=== PATIENT | male | born 1930 | race Caucasian/White ===

== ENCOUNTER → 2016-08-13 | Outpatient (CLI) | payer MEDICARE, OTHER | END | disposition home or self-care (01) | LOC: GMAJ 15:13 | PROVIDERS: ATTEND Family Medicine | DX: N40.1 Benign prostatic hyperplasia with lower urinary tract symptoms (principal); F32.9 Major depressive disorder, single episode, unspecified ==

== ENCOUNTER → 2017-10-28 | Outpatient (CLI) | payer MEDICARE, OTHER | LOC: GMAJ 11:11 | PROVIDERS: ATTEND Family Medicine | DX: Z12.5 Encounter for screening for malignant neoplasm of prostate (principal) ==

== ENCOUNTER → 2018-10-27 | Outpatient (CLI) | payer MEDICARE, OTHER | LOC: GMAJ 10:43 | PROVIDERS: ATTEND Family Medicine | DX: Z12.5 Encounter for screening for malignant neoplasm of prostate (principal) ==

== ENCOUNTER 2019-02-21 13:22 | Emergency (ER) | payer MEDICARE, OTHER ==
[2019-02-21] MEDS ORDERED: SODIUM CHLORIDE 0.9% (FLUSH) 10 ML SYG IV PRN (13:38)
[2019-02-21] MEDS ORDERED: SODIUM CHLORIDE 0.9% 1000ML 1,000 ML IVS PRN (13:38)
[2019-02-21] MEDS ORDERED: fentaNYL CITRATE INJ 50 MCG/ML AMP IV ONE (13:40)
--- NOTE | 2019-02-21 13:42 | ED.PDOC ---
History of Present Illness - General Time Seen by Provider: 02/21/19 13:38 - History of Present Illness Initial Comments: 88-year-old male arrives via EMS after fall from standing onto right hip, with immediate onset of pain, deformity, inability to ambulate. He denies abdominal pain chest pain or hitting his head. unclear if he takes blood thinners, but says he has hx of irregular heart beat. Allergies/Adverse Reactions: Allergies Codeine Allergy (Verified 07/04/14 18:07) Penicillins Allergy (Verified 07/04/14 18:07) Home Medications: Ambulatory Orders Tramadol HCl [Ultram] 50 mg PO Q6HR PRN #30 tab 06/22/15 Warfarin Sodium [Coumadin] 7.5 mg PO DAILY 06/22/15 Review of Systems - Review of Systems Review of Systems: 02/21/19 13:41 General: Denies generalized weakness, fever, arthralgia/myalgia HEENT: Denies sore throat, rhinorrhea Cardiovascular: Denies chest pain, palpitations Respiratory: Denies SOB, cough Gastrointestinal: Denies abdominal pain, vomiting, diarrhea : Denies dysuria, frequency Musculoskeletal: has extremity pain, extremity swelling as in HPI Integument: Denies rash, itching Neuro: Denies focal weakness or numbness Psych: Denies depression, hallucinations. Past Medical History (General) - Patient Medical History Hx Cardiac Disorders: Yes - A-Fib Hx Hypertension: Yes - Vaccination History Hx Tetanus, Diphtheria Vaccination: Yes Hx Influenza Vaccination: Yes Hx Pneumococcal Vaccination: Yes - Social History Hx Tobacco Use: No Hx Alcohol Use: No - Female History Patient : No Family Medical History - Family History Mother Family History: Unknown Living Status: Physical Exam - Physical Exam Comments: General Appearance: Patient is awake and alert. Skin: Warm and dry. No diaphoresis. No rash or other lesions. Head: Normocephalic/atraumatic. Eyes: PERRL, lids, conjunctiva and sclera unremarkable. EOMI intact. ENT: No nasal discharge. Oropharynx. Without erythema, exudate, lesions. Moist mucous membranes. Neck: Supple. No LAD. No tenderness. No JVD noted. Respiratory: Normal rate and effort. Breath sounds clear bilaterally. Cardiovascular: Regular rate. Heart sounds normal. No murmur. GI: Abdomen soft, non-distended and non-tender. No rebound/guarding. Bowel sounds normal. Back: No tenderness Musculoskeletal: Extremities- has shortened, int rotated R hip, w/ deformity at prox femur, thigh is swollen. NV intract distal to the injury. o/w Normal range of motion. No effusion, cyanosis, edema. Neurological: Alert. No facial palsy. Speech clear. Gag intact. No motor deficit, str symmetric. No sensory deficit. Progress - Progress Progress: 02/21/19 14:35 R hip x-ray reviewed, angulated, spiral fx of prox shaft, reduced w traction, external rotation, signif improved alignment on repeat xray. comfort improved, remains w/ good pulse, NV intact. - Results/Orders Results/Orders: Vital Signs - 24 hr 02/21/19 02/21/19 13:46 13:57 Temperature 97.3 F L Pulse Rate [ 58 L Right Brachial] Respiratory 20 Rate Blood Pressure 160/85 [Right Arm] O2 Sat by Pulse 98 95 Oximetry 02/21/19 13:38 IV Care:Saline Lock per Protoc QSHIFT Telemetry .ONCE Sodium Chloride 0.9% (Flush) [Saline Flush Syringe] 10 ml IV PRN PRN Sodium Chloride 0.9% 1000ML [Ns 1000 ml] 1,000 ml IVS .QD EKG Stat 02/21/19 13:39 EKG Assessment ONCE Hip,Right 2 Views [RAD] Stat Pelvis [RAD] Stat 02/21/19 14:33 URINALYSIS Stat 02/22/19 09:00 Pulse Ox Daily Laboratory Results WBC 7.3 K/mm3 (4.8-10.8) 02/21/19 13:59 RBC 4.26 M/mm3 (4.70-6.10) L 02/21/19 13:59 Hgb 14.4 gm/dL (14.0-18.0) 02/21/19 13:59 Hct 43.2 % (42.0-52.0) 02/21/19 13:59 MCV 101.3 fl (80.0-94.0) H 02/21/19 13:59 MCH 33.7 pg (27.0-31.0) H 02/21/19 13:59 MCHC 33.3 g/dL (33.0-37.0) 02/21/19 13:59 RDW 14.8 % (11.5-14.5) H 02/21/19 13:59 Plt Count 175 K/mm3 (130-400) 02/21/19 13:59 MPV 9.0 fl (7.40-10.4) 02/21/19 13:59 Absolute Neuts (auto) 3.70 K/uL (1.8-6.8) 02/21/19 13:59 Absolute Lymphs (auto) 3.00 K/uL (1.0-3.4) 02/21/19 13:59 Absolute Monos (auto) 0.50 K/uL (0.2-0.8) 02/21/19 13:59 Absolute Eos (auto) 0.10 K/uL (0.0-0.4) 02/21/19 13:59 Absolute Basos (auto) 0.10 K/uL (0.0-0.1) 02/21/19 13:59 Neutrophils % 50.3 % (42.0-78.0) 02/21/19 13:59 Lymphocytes % 41.3 % (20.0-50.0) 02/21/19 13:59 Monocytes % 6.3 % (2.0-9.0) 02/21/19 13:59 Eosinophils % 0.9 % (1.0-5.0) L 02/21/19 13:59 Basophils % 1.2 % (0.0-2.0) 02/21/19 13:59 PT 27.1 SECONDS (9.0-10.9) H* 02/21/19 13:59 INR 2.74 (0.9-1.15) H 02/21/19 13:59 PTT (SP) 32.3 SECONDS (21.8-31.6) H 02/21/19 13:59 Sodium 138 mmol/L (135-145) 02/21/19 13:59 Potassium 3.6 mmol/L (3.6-5.0) 02/21/19 13:59 Chloride 105 mmol/L (101-111) 02/21/19 13:59 Carbon Dioxide 24 mmol/L (21-31) 02/21/19 13:59 Anion Gap 12.6 (12-18) 02/21/19 13:59 BUN 15 mg/dL (7-18) 02/21/19 13:59 Creatinine 0.75 mg/dL (0.6-1.3) 02/21/19 13:59 BUN/Creatinine Ratio 20.0 (10-20) 02/21/19 13:59 Random Glucose 110 mg/dL (70-105) H 02/21/19 13:59 Serum Osmolality 277.1 mOsm/L (275-295) 02/21/19 13:59 Calcium 9.2 mg/dL (8.4-10.2) 02/21/19 13:59 Total Bilirubin 1.1 mg/dL (0.2-1.0) H 02/21/19 13:59 AST 25 IU/L (10-42) 02/21/19 13:59 ALT 18 IU/L (10-60) 02/21/19 13:59 Alkaline Phosphatase 70 IU/L (42-121) 02/21/19 13:59 Serum Total Protein 6.9 gm/dL (6.4-8.2) 02/21/19 13:59 Albumin 3.6 g/dl (3.2-5.5) 02/21/19 13:59 Globulin 3.3 gm/dL (2.3-3.5) 02/21/19 13:59 Albumin/Globulin Ratio 1.1 (1.1-1.9) 02/21/19 13:59 d/w Ortho, accepting EM MD in [place], have accepted for transfer. labs have return w/ INR 2.7, family has arrived, confirms coumadin. hematoma not expanding, will call back to [place], d/w accepting MD. RN called transfer center, they will relay information to accepting MD. abd remains benign, alert w/out MORALES, will defer CT imaging, coagulopathy reversal to accepting center. Procedures - Additional Procedures Progress: FRACTURE REDUCTION: verbal consent obtained Indication: R Femur Fracture w/ signif angulation Reduced w/ traction, ext rotation, improved alignment, comfort. remains NV intact distally, jair well. Departure - Departure Clinical Impression: Femur fracture, right, Fall from standing, Anticoagulated on Coumadin Time of Disposition: 14:45 Disposition: Transfer to Hospital Condition: Serious Referrals: Ty Adams MD [Primary Care Provider] - 1-2 Weeks Home Medications: Ambulatory Orders Tramadol HCl [Ultram] 50 mg PO Q6HR PRN #30 tab 06/22/15 Warfarin Sodium [Coumadin] 7.5 mg PO DAILY 06/22/15 Transfer to Outside Facility - Transfer Information Decision to Transfer Date: 02/21/19 Decision to Transfer Time: 14:15 Reason for Transfer: required specialist not available Accepting Provider:: Marjorie Accepting Facility: [facility]
--- NOTE | 2019-02-21 14:42 | RAD ---
EXAM DESCRIPTION: XR Pelvis CLINICAL HISTORY: fall, trauma TECHNIQUE: One view of the pelvis is submitted COMPARISON: None available for comparison FINDINGS: Bones: Mildly comminuted, displaced and angulated right femoral fracture involving the lesser trochanter and subtrochanteric/proximal diaphyseal region. Joints: No dislocation. Mild degenerative changes bilaterally. Soft tissues: Unremarkable IMPRESSION: Right femoral lesser trochanter and subtrochanteric/proximal diaphyseal fracture. Electronically signed by: Veena Hernandez MD 02/21/2019 2:41 PM [facility]
[2019-02-21 15:32] VITALS: BP 147/75; TEMP 97.8; O2SAT 97
--- NOTE | 2019-02-21 16:33 | RAD ---
EXAM DESCRIPTION: Hip,Right 2 Views CLINICAL HISTORY: 88 years Male fall, deformity COMPARISON: AP pelvis study from earlier in the day. TECHNIQUE: Single views of the right hip. FINDINGS: There is an obliquely oriented fracture through the proximal shaft of the femur with medial and superior displacement of the distal femur with respect to the more proximal femur. The angulation of the distal fracture fragments visualized on the previous study appears improved. IMPRESSION: Fractures through the proximal shaft of the femur. Electronically signed by: Julio Luke MD 02/21/2019 4:[address] [facility]
== END 2019-02-21 15:25 | disposition short-term general hospital (02) ==
LOC: ER 13:22
DX: S72.341A Displaced spiral fracture of shaft of right femur, initial encounter for closed fracture (principal); I48.91 Unspecified atrial fibrillation; I10 Essential (primary) hypertension; Z79.01 Long term (current) use of anticoagulants; W18.30XA Fall on same level, unspecified, initial encounter; Y92.008 Other place in unspecified non-institutional (private) residence as the place of occurrence of the external cause
CPT/HCPCS: 36415; 72170; 73502; 80053; 81001; 85025; 85610; 85730; 93005; 94760; 96374; 99285; J3010; J7030

== ENCOUNTER 2019-02-28 14:32 | Emergency (ER) | payer MEDICARE, OTHER ==
--- NOTE | 2019-02-28 15:17 | ED.PDOC ---
History of Present Illness - General Chief Complaint: Skin/Abrasion/Tear Stated Complaint: Wound check s/p R hip rpr Time Seen by Provider: 02/28/19 15:05 - History of Present Illness Initial Comments: Pt [facility] the [facility] to get evaluation for the infected wound , pt had femur fracture surgery on 02/24/2019 and was tranferred to [facility] for [facility] , pt denies for any unusual pain , or swelling or fever or chills , however there is some discharge Timing/Duration: 24 hours Severity: mild Improving Factors: nothing Worsening Factors: nothing Associated Symptoms: denies symptoms Allergies/Adverse Reactions: Allergies Codeine Allergy (Verified 02/28/19 14:47) Penicillins Allergy (Verified 02/28/19 14:47) Home Medications: Ambulatory Orders Tramadol HCl [Ultram] 50 mg PO Q6HR PRN #30 tab 06/22/15 Warfarin Sodium [Coumadin] 7.5 mg PO DAILY 06/22/15 Metoprolol Tartrate 25 mg PO BID #20 tab 02/28/19 Review of Systems - Review of Systems Constitutional: States: no symptoms reported EENTM: States: no symptoms reported Respiratory: States: no symptoms reported Cardiology: States: no symptoms reported Gastrointestinal/Abdominal: States: no symptoms reported Genitourinary: States: no symptoms reported Musculoskeletal: States: no symptoms reported Skin: States: see HPI Neurological: States: no symptoms reported Endocrine: States: no symptoms reported Hematologic/Lymphatic: States: no symptoms reported Past Medical History (General) - Patient Medical History Hx Stroke: No Hx Cardiac Disorders: Yes - Hyperlipidemia; a fib; aortic aneurysm Hx Congestive Heart Failure: No Hx Hypertension: Yes Hx Diabetes: No Hx MRSA: No Surgical History: other - Vaccination History Hx Tetanus, Diphtheria Vaccination: Yes Hx Influenza Vaccination: - Unknown Hx Pneumococcal Vaccination: - Unknown - Social History Hx Tobacco Use: No Hx Alcohol Use: No - Female History Patient : No Family Medical History - Family History Mother Family History: Unknown Living Status: Physical Exam - Physical Exam General Appearance: Alert, Comfortable, Other - pale Eye Exam: bilateral normal Ears, Nose, Throat: hearing grossly normal, normal ENT inspection Neck: non-tender, full range of motion, supple, normal inspection Respiratory: lungs clear, normal breath sounds, no respiratory distress, no accessory muscle use Cardiovascular/Chest: regular rate, rhythm, no edema, no gallop Gastrointestinal/Abdominal: non tender, soft, no organomegaly Extremity: non-tender, normal inspection Neurologic: no motor/sensory deficits, alert, normal mood/affect, oriented x 3 Skin Exam: other - wound clean Lymphatic: no adenopathy Progress - Progress Progress: 02/28/19 18:23 Case d/w Hospitalist Murray simmons , he says that as the pt was operated at [facility] so he should be transferred there , d/w Dr christiano lee operations officer afloat about transfer he says that as the pt has asymptomatic anemia so no need of transfusion at this moment pt can go to the [facility] and cbc can be done over there if Hb is getting lower then he needs the transfer . As the wound looks clinically non infected with no fever, no pain , no erythema and normal WBC count so will also observe at the [facility] , if looks infected then he needs to be transferred - Results/Orders Results/Orders: Laboratory Results WBC 10.8 K/mm3 (4.8-10.8) 02/28/19 15:39 RBC 2.38 M/mm3 (4.70-6.10) L 02/28/19 15:39 Hgb 7.7 gm/dL (14.0-18.0) L* 02/28/19 15:39 Hct 23.2 % (42.0-52.0) L 02/28/19 15:39 MCV 97.3 fl (80.0-94.0) H 02/28/19 15:39 MCH 32.3 pg (27.0-31.0) H 02/28/19 15:39 MCHC 33.2 g/dL (33.0-37.0) 02/28/19 15:39 RDW 18.0 % (11.5-14.5) H 02/28/19 15:39 Plt Count 225 K/mm3 (130-400) 02/28/19 15:39 MPV 9.0 fl (7.40-10.4) 02/28/19 15:39 Absolute Neuts (auto) 7.20 K/uL (1.8-6.8) H 02/28/19 15:39 Absolute Lymphs (auto) 1.90 K/uL (1.0-3.4) 02/28/19 15:39 Absolute Monos (auto) 1.60 K/uL (0.2-0.8) H 02/28/19 15:39 Absolute Eos (auto) 0.10 K/uL (0.0-0.4) 02/28/19 15:39 Absolute Basos (auto) 0.00 K/uL (0.0-0.1) 02/28/19 15:39 Neutrophils % 66.4 % (42.0-78.0) 02/28/19 15:39 Lymphocytes % 18.0 % (20.0-50.0) L 02/28/19 15:39 Monocytes % 14.4 % (2.0-9.0) H 02/28/19 15:39 Eosinophils % 0.7 % (1.0-5.0) L 02/28/19 15:39 Basophils % 0.5 % (0.0-2.0) 02/28/19 15:39 Sodium 138 mmol/L (135-145) 02/28/19 15:39 Potassium 3.6 mmol/L (3.6-5.0) 02/28/19 15:39 Chloride 106 mmol/L (101-111) 02/28/19 15:39 Carbon Dioxide 26 mmol/L (21-31) 02/28/19 15:39 Anion Gap 9.6 (12-18) L 02/28/19 15:39 BUN 26 mg/dL (7-18) H 02/28/19 15:39 Creatinine 0.82 mg/dL (0.6-1.3) 02/28/19 15:39 BUN/Creatinine Ratio 31.7 (10-20) H 02/28/19 15:39 Random Glucose 134 mg/dL (70-105) H 02/28/19 15:39 Serum Osmolality 282.4 mOsm/L (275-295) 02/28/19 15:39 Calcium 8.2 mg/dL (8.4-10.2) L 02/28/19 15:39 Total Bilirubin 2.4 mg/dL (0.2-1.0) H* 02/28/19 15:39 AST 128 IU/L (10-42) H 02/28/19 15:39 ALT 67 IU/L (10-60) H 02/28/19 15:39 Alkaline Phosphatase 104 IU/L (42-121) 02/28/19 15:39 Troponin I 0.03 ng/mL (0.01-0.05) 02/28/19 15:39 Serum Total Protein 4.9 gm/dL (6.4-8.2) L 02/28/19 15:39 Albumin 2.1 g/dl (3.2-5.5) L 02/28/19 15:39 Globulin 2.8 gm/dL (2.3-3.5) 02/28/19 15:39 Albumin/Globulin Ratio 0.8 (1.1-1.9) L 02/28/19 15:39 - EKG/XRAY/CT EKG: Fibrillation Departure - Departure Clinical Impression: Wound of thigh, Afib, Anemia Time of Disposition: 15:16 Disposition: Discharge to SNF Condition: Good Departure Forms: ED Discharge - Pt. Copy, Patient Portal Self Enrollment Instructions: DI for Abrasion Activity: other - as per ortho Referrals: Ty Adams MD [Primary Care Provider] - 1-2 Weeks Prescriptions: Metoprolol Tartrate 25 mg PO BID #20 tab Home Medications: Ambulatory Orders Tramadol HCl [Ultram] 50 mg PO Q6HR PRN #30 tab 06/22/15 Warfarin Sodium [Coumadin] 7.5 mg PO DAILY 06/22/15 Metoprolol Tartrate 25 mg PO BID #20 tab 02/28/19 Additional Instructions: Follow up ortho and cardiology Please check cbc in the morning and if it is <7.0 , pt needs to be evaluated for transfusion , please send the pt to [facility] Please monitor the wound also if becomes symptomatic with severe pain , discharge , fever erythema , send the pt to the [facility]
[2019-02-28] MEDS ORDERED: MORPHINE SULFATE INJ 10 MG/ML VIAL IM ONE (15:54)
--- NOTE | 2019-02-28 17:22 | CT ---
EXAM DESCRIPTION: Pelvis CLINICAL HISTORY: 88 years Male pain COMPARISON: Radiographs of the right hip and pelvis dated February 21, 2019. TECHNIQUE: Images were obtained in axial, sagittal, and coronal planes. This exam was performed according to our departmental dose-optimization program which includes use of Automated Exposure Control, adjustment of the mA and/or kV according to patient size and/or use of iterative reconstruction technique. FINDINGS: Interval internal fixation comminuted fractures trochanteric region and proximal right femur. Metallic plate and screw device now present right hip. Additional metallic wires noted. Satisfactory alignment seen. Air is identified within the anterior thigh soft tissues adjacent to the femur. Ill-defined fluid suspected. Edema subcutaneous fat. No additional fracture seen. Moderate bony demineralization. Grade 1-2 spondylolisthesis L5-S1. IMPRESSION: Interval internal fixation trochanteric fractures right hip with satisfactory alignment. Ill-defined fluid and air collections are seen adjacent to the trochanteric region anteriorly. Additional punctate air collections medial and lateral proximal soft tissues as well as posterior trochanteric region. There is likely recent drain removal. The findings may be related to postsurgical changes however clinical correlation would be needed to entirely exclude developing inflammatory process or phlegmon. Ultrasound correlation suggested for further characterization. No additional fracture seen. Electronically signed by: Marcella Munoz MD 02/28/2019 5:21 PM MAINTENANCE ENGINEER
[2019-02-28] MEDS ORDERED: SODIUM CHLORIDE 0.9% 1000ML 1,000 ML IVS ONE (17:29)
[2019-02-28 18:46] VITALS: O2SAT 96
[2019-02-28 20:06] VITALS: BP 131/82; TEMP 98.7
== END 2019-02-28 20:06 ==
LOC: ER 14:32
DX: S71.101A Unspecified open wound, right thigh, initial encounter (principal); I48.91 Unspecified atrial fibrillation; D64.9 Anemia, unspecified; E78.5 Hyperlipidemia, unspecified; I10 Essential (primary) hypertension; Z98.890 Other specified postprocedural states; Z79.01 Long term (current) use of anticoagulants; Z79.899 Other long term (current) drug therapy; Z88.5 Allergy status to narcotic agent; Z88.0 Allergy status to penicillin; X58.XXXA Exposure to other specified factors, initial encounter; Y92.9 Unspecified place or not applicable
CPT/HCPCS: 36415; 72192; 80053; 84484; 85025; 93005; J2270; J7030

== ENCOUNTER 2019-04-16 12:00 | Emergency (ER) | payer MEDICARE, OTHER ==
--- NOTE | 2019-04-16 12:26 | ED.PDOC ---
History of Present Illness - General Chief Complaint: Problem Stated Complaint: needs catheter changed Time Seen by Provider: 04/16/19 12:18 Source: patient Exam Limitations: no limitations - History of Present Illness Initial Comments: 88 yo M with catheter in place s/p L hip fx who presents for leaking from the urethral meatus with associated suprapubic fullness. Pt had the catheter exchanged on Friday for similar sx and they have again returned. Was sent over from the office today. Denies f/c, flank pain, back pain. Allergies/Adverse Reactions: Allergies Codeine Allergy (Verified 02/28/19 14:47) Penicillins Allergy (Verified 02/28/19 14:47) Home Medications: Ambulatory Orders Metoprolol Tartrate 25 mg PO BID #20 tab 02/28/19 Acetaminophen [Acetaminophen Extra Stren] 1,000 mg PO PRN 04/16/19 Apixaban [Eliquis] 2.5 mg PO BID 04/16/19 Cyanocobalamin [Vitamin B-12] 50 mcg PO DAILY 04/16/19 Finasteride 5 mg PO DAILY 04/16/19 Furosemide 20 mg PO DAILY 04/16/19 Levofloxacin [Levaquin] 750 mg PO DAILY #10 tablet 04/16/19 Pyridoxine HCl 100 mg PO DAILY 04/16/19 Simvastatin 20 mg PO DAILY 04/16/19 Sodium Phosphates [Fleet Enema] 1 maxine [place] PRN 04/16/19 Tamsulosin [Flomax] 0.4 mg PO QD 04/16/19 Topiramate 200 mg PO DAILY 04/16/19 Review of Systems - Review of Systems Constitutional: Denies: chills, fever EENTM: States: no symptoms reported Respiratory: States: no symptoms reported Cardiology: States: no symptoms reported Gastrointestinal/Abdominal: States: other - suprapubic fullness. Denies: abdominal pain, nausea, vomiting Genitourinary: Denies: discharge, hematuria Musculoskeletal: Denies: back pain Skin: Denies: lesions, rash Neurological: Denies: numbness, weakness Past Medical History (General) - Patient Medical History Hx Stroke: No Hx Cardiac Disorders: Yes - Hyperlipidemia; a fib; aortic aneurysm Hx Congestive Heart Failure: No Hx Hypertension: Yes Hx Diabetes: No Hx MRSA: No - Vaccination History Hx Tetanus, Diphtheria Vaccination: Yes Hx Influenza Vaccination: Yes Hx Pneumococcal Vaccination: Yes - Social History Hx Tobacco Use: Yes Hx Alcohol Use: No - Activities of Daily Living Penitentiary/Assisted Living (if applicable):: [facility] - Female History Patient : No Family Medical History - Family History Mother Family History: Unknown Living Status: Physical Exam - Physical Exam General Appearance: Alert, Comfortable, No apparent distress, Well Developed, Well Nourished Neck: full range of motion Cardiovascular/Respiratory: regular rate, rhythm, no M/R/G, normal peripheral pulses Gastrointestinal/Abdominal: normal bowel sounds, non tender, soft, no organomegaly, no pulsatile mass, other - No distention, guarding, rebound Male Genital Exam: normal genitalia, other - Urinary catheter in place, c/d/i; yellow urine in leg bag Back Exam: normal inspection, no CVA tenderness, no vertebral tenderness Extremity: normal range of motion, no pedal edema, normal capillary refill Neurologic: no motor/sensory deficits, alert, normal mood/affect, oriented x 3 Skin Exam: normal color, warm/dry Progress - Progress Progress: 04/16/19 14:36 Pt post void residual after catheter removal was minimal, refuses catheter replacement, Cr wnl. UA with infection. Updated pt, awaiting call back from Dr. Adams. 04/16/19 14:[address] Adams, agrees with workup, assessment, and plan of care. 04/16/19 14:50 I have explained and reviewed all results with the pt. Pt is eager for d/c. I explained that emergent conditions may arise and to return to the ER for new, worsening, or any persistent conditions. I've explained the importance of f/u for recheck. All questions and concerns addressed at this time. Pt understands and agrees with plan. Pt well appearing, NAD, is stable for discharge. Veronica Franco MD Emergency Medicine Physician Billing Number [id number] - Results/Orders Results/Orders: 04/16/19 12:18 Catheter:Lucas QSHIFT 04/16/19 13:00 Urine Culture Stat Laboratory Results - last 24 hr 04/16/19 04/16/19 04/16/19 13:00 14:04 14:04 WBC 7.6 RBC 3.96 L Hgb 12.8 L Hct 39.1 L MCV 98.9 H MCH 32.5 H MCHC 32.8 L RDW 16.5 H Plt Count 254 MPV 7.4 Absolute Neuts (auto) 4.70 Absolute Lymphs (auto) 1.80 Absolute Monos (auto) 0.60 Absolute Eos (auto) 0.30 Absolute Basos (auto) 0.20 H Neutrophils % 62.6 Lymphocytes % 24.2 Monocytes % 7.3 Eosinophils % 3.6 Basophils % 2.3 H Sodium 143 Potassium 4.0 Chloride 112 H Carbon Dioxide 27 Anion Gap 8.0 L BUN 13 Creatinine 0.76 BUN/Creatinine Ratio 17.1 Random Glucose 102 Serum Osmolality 285.3 Calcium 9.2 Urine Color Yellow Urine Appearance Turbid Urine pH 6.5 Ur Specific [place] 1.025 Urine Protein 30 Urine Glucose (UA) Negative Urine Ketones Negative Urine Blood Large H Urine Nitrite Negative Urine Bilirubin Negative Urine Urobilinogen 0.2 Ur Leukocyte Esterase Large H Urine RBC Tntc H Urine WBC Tntc H Ur Epithelial Cells Obscured by wbc's Amorphous Sediment 4+ Urine Bacteria 4+ H US renal/bladder: EXAM DESCRIPTION: Renal CLINICAL HISTORY: 88 years Male, pain COMPARISON: CTA abdomen October 27, 2015 TECHNIQUE: Retroperitoneal sonogram was performed to evaluate the kidneys and bladder. FINDINGS: Right kidney Right renal length is 10.9 cm. Renal cortical thickness is normal with mildly increased echogenicity. No right renal mass or shadowing stone. Cyst at the lower pole the right kidney measures 2.2 cm. No hydronephrosis. Previous CT showed calculus in the lower calyx of the right kidney which is not depicted on the present study. 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 No follow-up imaging is recommended. (Reference: J Am Javan Radiol 2013;10:789-794.) Left kidney Left renal length is 8.2 cm. Renal cortical thinning is present with increased echogenicity consistent with chronic scarring or senescent atrophy. No left renal mass or shadowing stone. Small cortical cyst measures 1.1 cm. No hydronephrosis. Urinary bladder Bladder wall thickness is normal for degree of distention. No bladder mass. Bladder volume equals 37 mL. Positive ureteral jets in the bladder base. Prostate is prominent 4.2 cm in transverse dimension. Postvoid volume equals 2.6 mL. IMPRESSION: Small left kidney with bilateral increased renal cortical echogenicity. Correlate with renal function tests. Negative for hydronephrosis. Unremarkable appearance of the urinary bladder. Electronically signed by: Shane Dubose MD 04/16/2019 1:45 PM BRAZING MACHINE OPERATOR HELPER Vital Signs - 24 hr 04/16/19 04/16/19 04/16/19 12:16 13:00 14:00 Temperature 97.4 F L Pulse Rate [ 66 60 67 Left Brachial] Respiratory 20 20 20 Rate Blood Pressure 148/98 129/76 130/82 [Left Arm] O2 Sat by Pulse 97 98 100 Oximetry Departure - Departure Clinical Impression: Acute cystitis without hematuria, Urinary catheter insertion/adjustment/removal Disposition: Discharge to Home or Self Care Health Concerns: condition: stable Departure Forms: ED Discharge - Pt. Copy, Patient Portal Self Enrollment Referrals: Ty Adams MD [Primary Care Provider] - 1-5 Days Prescriptions: Levofloxacin [Levaquin] 750 mg PO DAILY #10 tablet Home Medications: Ambulatory Orders Metoprolol Tartrate 25 mg PO BID #20 tab 02/28/19 Acetaminophen [Acetaminophen Extra Stren] 1,000 mg PO PRN 04/16/19 Apixaban [Eliquis] 2.5 mg PO BID 04/16/19 Cyanocobalamin [Vitamin B-12] 50 mcg PO DAILY 04/16/19 Finasteride 5 mg PO DAILY 04/16/19 Furosemide 20 mg PO DAILY 04/16/19 Levofloxacin [Levaquin] 750 mg PO DAILY #10 tablet 04/16/19 Pyridoxine HCl 100 mg PO DAILY 04/16/19 Simvastatin 20 mg PO DAILY 04/16/19 Sodium Phosphates [Fleet Enema] 1 maxine [place] PRN 04/16/19 Tamsulosin [Flomax] 0.4 mg PO QD 04/16/19 Topiramate 200 mg PO DAILY 04/16/19 Additional Instructions: Follow up: [facility] As needed, if symptoms worsen
--- NOTE | 2019-04-16 13:46 | US ---
EXAM DESCRIPTION: Renal CLINICAL HISTORY: 88 years Male, pain COMPARISON: CTA abdomen October 27, 2015 TECHNIQUE: Retroperitoneal sonogram was performed to evaluate the kidneys and bladder. FINDINGS: Right kidney Right renal length is 10.9 cm. Renal cortical thickness is normal with mildly increased echogenicity. No right renal mass or shadowing stone. Cyst at the lower pole the right kidney measures 2.2 cm. No hydronephrosis. Previous CT showed calculus in the lower calyx of the right kidney which is not depicted on the present study. 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 No follow-up imaging is recommended. (Reference: J Am Javan Radiol 2013;10:789-794.) Left kidney Left renal length is 8.2 cm. Renal cortical thinning is present with increased echogenicity consistent with chronic scarring or senescent atrophy. No left renal mass or shadowing stone. Small cortical cyst measures 1.1 cm. No hydronephrosis. Urinary bladder Bladder wall thickness is normal for degree of distention. No bladder mass. Bladder volume equals 37 mL. Positive ureteral jets in the bladder base. Prostate is prominent 4.2 cm in transverse dimension. Postvoid volume equals 2.6 mL. IMPRESSION: Small left kidney with bilateral increased renal cortical echogenicity. Correlate with renal function tests. Negative for hydronephrosis. Unremarkable appearance of the urinary bladder. Electronically signed by: Shane Dubose MD 04/16/2019 1:45 PM [employer]
[2019-04-16 15:15] VITALS: BP 140/90; TEMP 97.5; O2SAT 97
== END 2019-04-16 15:15 | disposition home or self-care (01) ==
LOC: ER 12:00
DX: N30.00 Acute cystitis without hematuria (principal); E78.5 Hyperlipidemia, unspecified; I48.91 Unspecified atrial fibrillation; I10 Essential (primary) hypertension; Z46.6 Encounter for fitting and adjustment of urinary device; Z98.890 Other specified postprocedural states; Z87.891 Personal history of nicotine dependence; Z79.899 Other long term (current) drug therapy; Z88.5 Allergy status to narcotic agent; Z88.0 Allergy status to penicillin; Z79.01 Long term (current) use of anticoagulants